=== PATIENT | male | born 1950 | race Caucasian/White ===

== ENCOUNTER 2019-06-14 09:09 | Day surgery (SDC) | payer MEDICARE, OTHER ==
[~2019-06-14] VITALS: Ht 177.8 cm; Wt 83.1 kg
[~2019-06-14 09:09] MED LIST: AMOCLA875 PO; ASPI325 PO; ASPI81CH PO; AZIT250 PO; CIPRO500 MG PO; GUAIFENESIN ER600 MG PO; HYDACE5 PO; HYDCHL25 PO; HYDGUAL120 PO; HYDR1TAB94 PO; Hair, Skin & N1 EACH PO; IBUP800 PO; KETO10 PO; LAVAP17G PO; LISI5 PO; METO10; METO25 PO; Norco 5-325 Ta1 EACH PO; OXYACE5T PO; PANT40; Percocet 5-3251 EACH PO; Prilosec Otc20 MG PO; Prinivil10 MG PO; SULTRIDS PO; TAMS.4ER PO; Zantac150 MG PO; Zofran4 MG PO
--- NOTE | 2019-06-14 09:36 | NUR ---
Ambulatory in Day Surgery History, Chart, Medications and Allergies reviewed before start of procedure.Patient confirms NPO status and agrees with scheduled surgery. Patient States Post-Procedure ride home has been arranged. Lungs clear T/O to Auscultation. PT WAS NOT GIVEN PREOP CHLORHEXIDINE SHOWER. PT STATES PREOP ENEMA COMPLETE
--- NOTE | 2019-06-14 11:29 | NUR ---
Patient up to Ambulate independently. Gait steady. Discharge instructions reviewed with patient. Patient verbalizes understanding. Copy given to patient to take home. Patient States Post-Procedure ride home has been arranged. Modonna panties in place with gauze between buttocks. Discharged via wheelchair to private car for ride home.
== END 2019-06-14 11:39 | disposition home or self-care (01) ==
LOC: ORSCMMR 09:09 → ORD 10:30 → ORSCMMR 10:30
PROVIDERS: Surgery
PROC: 06BY0ZC Excision of Hemorrhoidal Plexus, Open Approach (ICD-10-PCS; principal; 2019-06-14 10:30)
DX: K64.2 Third degree hemorrhoids (principal); I10 Essential (primary) hypertension; I48.91 Unspecified atrial fibrillation; K21.9 Gastro-esophageal reflux disease without esophagitis; B19.20 Unspecified viral hepatitis C without hepatic coma; Z79.899 Other long term (current) drug therapy; Z79.82 Long term (current) use of aspirin
CPT/HCPCS: 88304; J1100; J2250; J2405; J2704; J3010; J7120

== ENCOUNTER 2019-06-19 12:43 | Emergency (ER) | payer MEDICARE, OTHER ==
[~2019-06-19] VITALS: Ht 172.7 cm; Wt 84.8 kg
[2019-06-19] MEDS ORDERED: OXYC5 PO (13:03)
[2019-06-19] MEDS ORDERED: Norco 5-325 Ta1 EACH PO (13:36)
[2019-06-19] MEDS ORDERED: Percocet 5-3251 EACH PO (14:47)
== END 2019-06-19 13:42 | disposition home or self-care (01) ==
LOC: ER 12:43
DX: G89.18 Other acute postprocedural pain (principal); K62.89 Other specified diseases of anus and rectum; F17.200 Nicotine dependence, unspecified, uncomplicated; Z88.8 Allergy status to other drugs, medicaments and biological substances; Z88.5 Allergy status to narcotic agent; Z79.899 Other long term (current) drug therapy; Z79.82 Long term (current) use of aspirin
CPT/HCPCS: 99282

== ENCOUNTER → 2023-10-01 | Outpatient (CLI) | payer MEDICARE, OTHER ==
[~2023-10-01] MED LIST changes: +OXYC5 PO
[2023-10-02 10:52] LABS: LDL/HDL RATIO 1.7; Thyroid Stimulating Hormone 0.361 uIU/mL (0.360-4.800); Very Low Density Lipoprot Chol 19 mg/dL (6-32)
[2023-10-02 10:53] LABS: CHOL/HDL RATIO 2.9; Cholesterol 197 mg/dL (50-200); HDL Cholesterol 67 mg/dL (>39); Low Density Lipoprotein Chol 111 mg/dL (0-110); PSA, %Free 6.7 %; Triglycerides 95 mg/dL (30-160)
[2023-10-03 09:10] LABS: A/G RATIO 1.4 (1.2-2.2); BILIRUBIN, TOTAL 0.3 mg/dL (0.0-1.2); CALCIUM, SERUM 9.8 mg/dL (8.6-10.2); CREATININE, SERUM 0.95 mg/dL (0.76-1.27); GLOBULIN, TOTAL 2.9 g/dL (1.5-4.5); POTASSIUM, SERUM 4.3 mmol/L (3.5-5.2); PROTEIN, TOTAL, SERUM 6.9 g/dL (6.0-8.5)
== END ==
LOC: LAB SHORT 18:09 → LAB 18:09
PROVIDERS: Nurse Practitioner Family
DX: I10 Essential (primary) hypertension (principal); F41.1 Generalized anxiety disorder; E55.9 Vitamin D deficiency, unspecified; N40.0 Benign prostatic hyperplasia without lower urinary tract symptoms; F33.1 Major depressive disorder, recurrent, moderate
CPT/HCPCS: 80053; 80061; 82306; 84153; 84154; 84443

== ENCOUNTER 2023-11-03 12:05 | Emergency (ER) | payer MEDICARE, OTHER ==
[~2023-11-03] VITALS: Ht 182.9 cm; Wt 80.7 kg
[2023-11-03 12:55] LABS: BASOPHILS ABSOLUTE AUTO 0.05 K/mm3 (0.00-0.23); BASOPHILS PERCENT AUTO 0 % (0-2); EOSINOPHILS ABSOLUTE AUTO 0.02 K/mm3 (0.00-0.68); EOSINOPHILS PERCENT AUTO 0 % (0-6); Hematocrit 48.9 % (37.0-53.0); Hemoglobin 17.2 g/dL (13.5-17.5); IMMATURE GRAN ABSOLUTE AUTO 0.12 K/mm3 (0.00-0.10); IMMATURE GRAN PERCENT AUTO 1 % (0-1); LYMPHOCYTES ABSOLUTE AUTO 1.17 K/mm3 (0.84-5.20); LYMPHOCYTES PERCENT AUTO 6 % (21-46); MONOCYTES ABSOLUTE AUTO 0.83 K/mm3 (0.16-1.47); MONOCYTES PERCENT AUTO 4 % (4-13); Mean Corpuscular HGB 31.6 pg (26.0-34.0); Mean Corpuscular HGB Conc 35.2 g/dL (31.5-36.5); Mean Corpuscular Volume 90 fL (80-100); Mean Platelet Volume 9.1 fL (9.1-12.4); NEUTROPHILS ABSOLUTE AUTO 18.16 K/mm3 (1.96-9.15); NEUTROPHILS PERCENT AUTO 89 % (41-73); Platelet Count 184 K/mm3 (150-400); RDW Coefficient Variation 13.2 % (11.7-14.2); RDW Standard Deviation 42.9 fL (35.1-46.3); Red Blood Cell Count 5.44 M/mm3 (4.30-5.90); White Blood Cell Count 20.35 K/mm3 (4.00-11.30)
[2023-11-03 13:19] LABS: Influenza A, PCR NEGATIVE (NEGATIVE); Influenza B, PCR NEGATIVE (NEGATIVE); Resp Syncytial Virus, PCR NEGATIVE (NEGATIVE); SARS-Cov-2 (COVID-19) PCR, MMC NEGATIVE (NEGATIVE)
[2023-11-03 13:40] LABS: Source, Urine Clean Catch
[2023-11-03 13:45] LABS: Appearance, Urine Clear (Clear); Bilirubin, Urine Neg (Neg); Blood, Urine Neg (Neg); Color, Urine Yellow (P-Yellow); Glucose Qualitative, Urine Neg (Neg); Ketones, Urine 2+ (Neg); Leukocyte Esterase, Urine Neg (Neg); Nitrite, Urine Neg (Neg); Protein, Urine 2+ (Neg); Urobilinogen, Urine 1+ (Normal)
[2023-11-03 14:02] LABS: Bacteria Rare /hpf; Hyaline Casts 0-2 /lpf (0-2); Red Blood Cells, Urine 0-2 /hpf (0-2); Squamous Epithelial Cells Few /hpf (Few); White Blood Cells, Urine 0-2 /hpf (0-5)
[2023-11-03 14:34] LABS: Albumin, Blood 3.2 g/dL (3.4-5.0); Albumin/Globulin Ratio 0.7 (0.8-1.8); Bun/Creatinine Ratio 32.2 (12.0-20.0); Calcium, Blood 8.9 mg/dL (8.5-10.1); Creatinine, Blood 0.81 mg/dL (0.60-1.20); Globulin, Blood 4.5 g/dL (2.2-4.0); Potassium, Blood 3.6 mmol/L (3.5-5.5); Total Protein, Blood 7.7 g/dL (6.4-8.2)
[2023-11-03] MEDS ORDERED: Mag Hydrox/AL Hydrox/Simeth 30 ML UDC PO ONE (14:45)
[2023-11-03] MEDS ORDERED: Ondansetron HCl 2 MG / ML 2ML Vial IV ONE (14:45)
[2023-11-03] MEDS ORDERED: ChlordiazePOXIDE 25 MG Cap PO ONE (14:45)
[2023-11-03] MEDS ORDERED: Pantoprazole Sodium 40 MG Injection IV ONE (14:45)
[2023-11-03] MEDS ORDERED: NS 1,000 ML IV SCH (14:50)
[2023-11-03 16:00] VITALS: BP 181/102
[2023-11-03] MEDS ORDERED: FAMO20 PO (16:08)
[2023-11-03] MEDS ORDERED: METO10 PO (16:08)
[2023-11-03] MEDS ORDERED: CHLO25 PO (16:08)
[2023-11-03] MEDS ORDERED: ONDA4ODT MM (16:08)
== END 2023-11-03 16:15 | disposition home or self-care (01) ==
LOC: ER 12:05
PROVIDERS: Student in an Organized Health Care Education/Training Program
DX: K29.70 Gastritis, unspecified, without bleeding (principal); F10.239 Alcohol dependence with withdrawal, unspecified; Z88.8 Allergy status to other drugs, medicaments and biological substances; Z88.5 Allergy status to narcotic agent; Z79.899 Other long term (current) drug therapy; Z79.82 Long term (current) use of aspirin; F17.200 Nicotine dependence, unspecified, uncomplicated
CPT/HCPCS: 0241U; 74177; 80053; 81001; 83690; 85025; 93005; 93010; 96361; 96374-59; 96375; 99284-25; A9270; C9113; J2405; J7030; Q9967